=== PATIENT | female | born 1940 | race Caucasian/White ===

== ENCOUNTER 2016-10-28 06:09 | Day surgery (SDC) | payer MEDICARE ==
[~2016-10-28] VITALS: Ht 152.4 cm; Wt 59.5 kg
[2016-10-28] VITALS (7 sets, daily range): BP systolic 137–214; BP diastolic 60–109; PULSE 56–67; RESP 16–20; TEMP 97.1–98.2; O2SAT 95–98
[2016-10-28] MEDS ORDERED: LOSA50TA PO (06:45)
[2016-10-28] MEDS ORDERED: ZETI10TA5 PO (06:45)
[2016-10-28] MEDS ORDERED: PANT40TA3 PO (06:45)
[2016-10-28] MEDS ORDERED: PRESCAP5 PO (06:45)
[2016-10-28] MEDS ORDERED: CART180C PO (06:45)
[2016-10-28] MEDS ORDERED: ATOR20TA15 PO (06:45)
[2016-10-28] MEDS ORDERED: FURO20TA PO (06:45)
[2016-10-28] MEDS ORDERED: ASPI325T PO (06:45)
[2016-10-28 07:28] LABS: AUTOMATED NEUTROPHIL # 4.2 TH/MM3 (1.8-7.7); BASOPHIL % 0.4 % (0.0-2.0); EOSINOPHIL # 0.1 TH/MM3 (0-0.4); EOSINOPHIL % 1.3 % (0.0-4.0); HEMATOCRIT 41.5 % (35.0-46.0); MEAN CELL VOLUME 84.3 FL (80.0-100.0); MEAN CORPUSCULAR HGB CONC 34.4 % (32.0-36.0); NEUT % 62.3 % (16.0-70.0); PLATELET COUNT 136 TH/MM3 (150-450); RED BLOOD COUNT 4.92 MIL/MM3 (4.00-5.30); RED CELL DISTRIBUTION WIDTH 14.8 % (11.6-17.2); WHITE BLOOD COUNT 6.8 TH/MM3 (4.0-11.0)
[2016-10-28 07:54] LABS: BICARBONATE 28.4 MEQ/L (21.0-32.0); POTASSIUM 4.1 MEQ/L (3.5-5.1)
[2016-10-28 08:04] LABS: HEMO FLAGS AUTO DIFF
[2016-10-28 08:05] LABS: OVALOCYTES 1+ (NORMAL)
[2016-10-28 08:06] LABS: PLATELET ESTIMATE SMEAR LOW (NORMAL); PLATELET MORPHOLOGY NORMAL (NORMAL); SCAN/DIFF AUTO DIFF CONFIRMED
[2016-10-28] MEDS ORDERED: LIDOCAINE 1%/EPINEPHrine 1:100,000 SOLN 20 ML VIAL ONE (08:15)
[2016-10-28] MEDS ORDERED: ceFAZolin 2 GM PREMIX 50 ML ONE (08:24)
[2016-10-28 09:30] LABS: APTT (PATIENT) 22.1 SEC (24.3-30.1); INTERNATIONAL NORMALIZED RATIO 0.9 RATIO
[2016-10-28] MEDS ORDERED: ONDANSETRON HCL 4 MG/2 ML VIAL ONE (11:21)
--- NOTE | 2016-10-28 11:24 | PD.RAD ---
Post Procedure Progress Note Pre Procedure Diagnosis: (1) Carcinoma of right kidney Post Procedure Diagnosis: (1) Carcinoma of right kidney Procedure Date: Oct 28, 2016 Supervising Radiologist: Brian Hickman Anesthesia: General, Local Plan of Activity Patient to Unit: PACU Patient Condition: Good Additional Comments: Successful RFA of a 2.3cm right Renal mass. No immediate post procedure complication evident. See PACS Report for procedural detail/treatment Brian Hickman MD Oct 28, 2016 11:24
[2016-10-28] MEDS ORDERED: oxyCODONE/ACETAMINOPHEN 5 MG/325 MG TAB PO PRN (11:30)
[2016-10-28] MEDS ORDERED: SUGAMMADEX SODIUM 200 MG/2 ML VIAL IV PUSH ONE ×2 (11:42)
[2016-10-28] MEDS ORDERED: *RESP: ALBUTEROL 2.5 MG/3 ML NEB (PRN) PERIprocedural Use ONLY NEB ONE (11:51)
[2016-10-28] MEDS ORDERED: *PROMETHAZINE 25 MG/ML VIAL PERIprocedural use ONLY ONE (11:58)
[2016-10-28] MEDS ORDERED: *LABETALOL HCL 100 MG/20 ML VIAL PERIprocedural Use ONLY ONE (12:09)
[2016-10-28] MEDS ORDERED: *ENALAPRILAT 1.25 MG/ML VIAL PERIprocedural Use ONLY ONE (12:18)
[2016-10-28] MEDS ORDERED: DO NOT ADM ANY ANTICOAGULANT DRUGS XX PRN (12:45)
--- NOTE | 2016-10-28 15:35 | RADRPT ---
EXAM DATE/TIME: 10/28/2016 10:06 INDICATIONS : Right renal mass. Anesthesia and pain control was provided by the Anesthesia department. DEVICE(S): 1.) 16 gauge Cryoablation probe 2.) 16 gauge Cryoablation probe MEDICAL HISTORY : Gastroesophageal reflux disease. Hypertension. Renal cysts. SURGICAL HISTORY : Hysterectomy. ENCOUNTER: Initial ACUITY: 1 day PAIN SCORE: 0/10 LOCATION: Right renal PROCEDURE : 1. CT guided cryoablation. The patient is a 75 year old with a 2.3 cm mass on the posterior lateral aspect of the right kidney. There was previous biopsy of this mass which was suspicious for renal cell carcinoma. The risk benefits and potential complications of CT guided cryoablation were discussed in detail. The risks included but were not limited to bleeding, infection, emergent surgery and possible tumor recu rrence. Written consent was obtained. Under sterile conditions and using aseptic technique with CT guidance the mass was localized and sati sfactory approach was taken to access the lesion. Using automated exposure control and adjustment of the mA and/or kV according to patient size, radiation dose was kept as low as reasonably achievable to obtain optimal diagnostic quality images. Tongal Cryoprobes were employed using percutaneous technique employing the prescribed probes. A freeze-thaw, freeze-thaw technique was employed and serial imaging demonstrated an ice ball encomp assing the entire lesion. Post procedure images demonstrate expected postoperative changes without e vidence of hematoma. CONCLUSION: Uncomplicated cryoablation as above. Brian Hickman MD on October 28, 2016 at 15:31 Board Certified Radiologist. This report was verified electronically.
--- NOTE | 2016-10-28 23:38 | EKG ---
Date Performed: 10/28/2016 Time Performed: 07:15:36 PTAGE: 75 years EKG: Sinus rhythm NONSPECIFIC T-WAVE ABNORMALITY BORDERLINE ECG NO PREVIOUS TRACING DOCTOR: Wily Fuller Interpretating Date/Time 10/28/2016 23:37:50
== END 2016-10-28 16:00 | disposition home or self-care (01) ==
LOC: HSDC 06:09 → HRIP 06:11 → HSDC 16:00
PROVIDERS: ATTEND Urology
DX: C64.1 Malignant neoplasm of right kidney, except renal pelvis (principal); I10 Essential (primary) hypertension; K21.9 Gastro-esophageal reflux disease without esophagitis
CPT/HCPCS: 00862; 50593; 77013; 80048; 85025; 85610; 85730; 93005; 94664; C2618; J0690; J2405; J2550; J7613